=== PATIENT | male | born 1970 | race Caucasian/White ===

== ENCOUNTER 2017-06-08 09:24 | Day surgery (SDC) | payer OTHER ==
--- NOTE | 2017-06-08 10:52 | PDOC ---
History of Present Illness - General History Source: Patient Exam Limitations: No Limitations - History of Present Illness Initial Comments: 06/08/17 10:58 The patient is a 47 year old male, with a significant past medical history of a left inguinal hernia and depression, who presents to the emergency department with left inguinal pain since earlier today. The patient reports sudden onset of left inguinal pain earlier this morning, secondary to bulging left inguinal hernia. Patient states he was diagnosed with the hernia via US in 2016, and was told he needed surgical intervention. Since then, patient reports intermittent left inguinal pain, exacerbated with bending or sitting. However, today, patient reports worsening pain, which he rates a 10/10. Patient states there are days where the hernia feels like its not there, but it can pop out and he can push it back in. He denies any associated abdominal pain, nausea, vomiting, diarrhea, or constipation. He denies any testicular swelling, dysuria, hematuria , frequency, or urgency. He denies any fever or chills. He denies any recent travel or sick contacts. He denies any heavy lifting or trauma. Allergies: NKDA Past Surgical History: None reported. 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 No ETOH or recreational drug use. Non smoker <Sanna Iverson - Last Filed: 06/08/17 11:05> - General History Source: Patient Exam Limitations: No Limitations <Karla Marin - Last Filed: 06/08/17 16:47> - General Chief Complaint: Pain Stated Complaint: Inginal hernia pain Past History <Sanna Iverson - Last Filed: 06/08/17 11:05> - Past Medical History COPD: No - Suicide/Smoking/Psychosocial Hx Smoking History: Never smoked Have you smoked in the past 12 months: No Information on smoking cessation initiated: Yes Hx Alcohol Use: No Drug/Substance Use Hx: No Substance Use Type: None <Karla Marin - Last Filed: 06/08/17 16:47> - Past Medical History Allergies/Adverse Reactions: Allergies Allergy/AdvReac Type Severity Reaction Status Date / Time No Known Allergies Allergy Verified 06/08/17 09:32 Home Medications: Ambulatory Orders Buprenorphine HCl/Naloxone HCl [Suboxone 4 mg-1 mg Sl Film] 1 each SL BID Escitalopram Oxalate [Lexapro -] 20 mg PO DAILY 06/08/17 Review of Systems - Review of Systems Able to Perform ROS?: Yes Comments:: 06/08/17 10:58 GENERAL/CONSTITUTIONAL: No fever or chills. No weakness. HEAD, EYES, EARS, NOSE AND THROAT: No change in vision. No ear pain or discharge. No sore throat. CARDIOVASCULAR: No chest pain or shortness of breath. RESPIRATORY: No cough, wheezing, or hemoptysis. GASTROINTESTINAL: No nausea, vomiting, diarrhea or constipation. GENITOURINARY: No dysuria, frequency, or change in urination. MUSCULOSKELETAL: +Left inguinal pain. No neck or back pain. SKIN: No rash NEUROLOGIC: No headache, vertigo, loss of consciousness, or change in strength/ sensation. ENDOCRINE: No increased thirst. No abnormal weight change. HEMATOLOGIC/LYMPHATIC: No anemia, easy bleeding, or history of blood clots. ALLERGIC/IMMUNOLOGIC: No hives or skin allergy. <Sanna Iverson - Last Filed: 06/08/17 11:05> *Physical Exam - Vital Signs Last Vital Signs Temp Pulse Resp BP Pulse Ox 98 F 96 H 18 122/100 100 06/08/17 09:30 06/08/17 09:30 06/08/17 09:30 06/08/17 09:30 06/08/17 09:30 - Physical Exam Comments: 06/08/17 10:58 GENERAL: Awake, alert, and fully oriented, in no acute distress HEAD: No signs of trauma EYES: PERRLA, EOMI, sclera anicteric, conjunctiva clear ENT: Auricles normal inspection, hearing grossly normal, nares patent. Moist mucosa NECK: Normal ROM, supple, no lymphadenopathy, JVD, or masses LUNGS: Breath sounds equal, clear to auscultation bilaterally. No wheezes, and no crackles HEART: Regular rate and rhythm, normal S1 and S2, no murmurs, rubs or gallops ABDOMEN: Palpable bulge, non reducible left inguinal hernia. Soft, nontender, normoactive bowel sounds. No guarding, no rebound. : Scrotum nontender bilaterally EXTREMITIES: Normal range of motion, no edema. No clubbing or cyanosis. No cords, erythema, or tenderness. DP/PT pulses 2+ and symmetric. Warm NEUROLOGICAL: Moves all extremities. Normal speech, normal gait SKIN: Warm, Dry, normal turgor, no rashes or lesions noted. <Sanna Iverson - Last Filed: 06/08/17 11:05> - Vital Signs Last Vital Signs Temp Pulse Resp BP Pulse Ox 98 F 96 H 18 122/100 100 06/08/17 09:30 06/08/17 09:30 06/08/17 09:30 06/08/17 09:30 06/08/17 09:30 <Karla Marin - Last Filed: 06/08/17 16:47> Heart Score/ECG Review #1 General ECG Interpretation: Sinus Rhythm, Normal Rate (68), Normal Intervals, No acute ischemic changes <Karla Marin - Last Filed: 06/08/17 16:47> ED Treatment Course - LABORATORY CBC & Chemistry Diagram: 06/08/17 07:30 06/08/17 07:30 <Karla Marin - Last Filed: 06/08/17 16:47> Medical Decision Making - Medical Decision Making 06/08/17 11:05 First call placed to [facility] at 11:06. Awaiting call back. <Sanna Iverson - Last Filed: 06/08/17 11:05> - Medical Decision Making 06/08/17 10:47 -year-old male known history of left inguinal hernia was told to have surgery 2 years ago here today for pain and swelling in the left inguinal region. Patient states he usually can reduce it but today was unable to reduce it no nausea no vomiting pain is moderate no urinary complaints. Last BM was yesterday unsure if he is passing gas. He does not currently have a primary care doctor only medication he takes for previous opiate addiction and depression On exam he is awake alert no acute distress his left inguinal region is noted for a bulge which is nonreducible mild tenderness no overlying erythema testes are nontender and there is no palpable scrotal hernia X Plan surgery consult IV fluids labs including a lactate CT of the pelvis make the patient nothing by mouth patient requesting no opiates for pain control <Karla Marin - Last Filed: 06/08/17 16:47> *DC/Admit/Observation/Transfer - Attestations Scribe Attestion: 06/08/17 10:58 Documentation prepared by Giomilsy Iverson, acting as health care / medical job titles for Karla Marin MD. <Sanna Iverson - Last Filed: 06/08/17 11:05> - Discharge Dispostion Admit: Yes <Karla Marin - Last Filed: 06/08/17 16:47> Diagnosis at time of Disposition: Inguinal hernia
[2017-06-08] MEDS ORDERED: SODIUM CHLORIDE 0.9% 1000 ML INFUS.BAG IV ONE (11:00)
[2017-06-08] MEDS ORDERED: ACETAMINOPHEN 1000 MG/100 ML VIAL (NON FORMULARY) IVPB ONE (11:00)
[2017-06-08] MEDS ORDERED: ACETAMINOPHEN INJECTION 100 ML IVPB ONE (11:11)
[2017-06-08 11:35] LABS: BASO % 0.3 % (0-2.0); EOS % 2.7 % (0-4.5); HEMATOCRIT 41.7 % (35.4-49); HEMOGLOBIN 14.2 GM/dL (11.7-16.9); MEAN CELL VOLUME 85.1 fl (80-96); MEAN PLT VOLUME 7.7 fl (7.5-11.1); MONO % 6.1 % (3.8-10.2); NEUT % 63.9 % (42.8-82.8); PLATELET COUNT 261 K/MM3 (134-434); RBC 4.91 M/mm3 (4.00-5.60); RDW 13.5 % (11.9-15.9); WHITE BLOOD COUNT 6.5 K/mm3 (4.0-10.0)
[2017-06-08 11:50] LABS: INR 0.99 (0.82-1.09); PROTHROMBIN TIME (PATIENT) 11.2 SEC (9.98-11.88)
[2017-06-08 12:04] LABS: ALBUMIN 4.4 g/dl (3.4-5.0); ALK PHOS 86 U/L (45-117); ANION GAP 9 (8-16); BILIRUBIN,TOTAL 0.3 mg/dL (0.2-1.0); BLOOD UREA NITROGEN 13 mg/dL (7-18); CALCIUM 9.1 mg/dL (8.5-10.1); CHLORIDE 104 mmol/L (98-107); CO2 26 mmol/L (21-32); CREATININE 0.7 mg/dL (0.7-1.3); GLUCOSE,RANDOM 112 mg/dL (74-106); SGPT/ALT 41 U/L (12-78); SODIUM 139 mmol/L (136-145); TOT PROT 7.3 g/dl (6.4-8.2)
--- NOTE | 2017-06-08 12:05 | HP ---
Admitting History and Physical - Admission Chief Complaint: left groin pain History of Present Illness: 47yo M with h/o oxycodone abuse on suboxone maintenance therapy (sober 6-7 yrs) , anxiety, left inguinal hernia diagnosed 2 yrs ago, presents with left groin pain today enough to prompt ER visit. He reports the hernia generally slides in and out, and bothers him more while up and around or while driving (for work), but usually goes down when relaxing or lying down. This time, it has not gone back in, but for no longer than yesterday pm. His pain is much better since IV Tylenol, but ER was unable to reduce it. He has no urinary complaints, no constipation or diarrhea, no F/C, no N/V. He last had a few bites of breakfast sandwich and coffee while in ER (~11am). Surgery was called to evaluate. I was able to reduce hernia fairly easily with patient supine and without pain or tenderness. History Source: Patient Limitations to Obtaining History: No Limitations - Past Medical History Psych: Yes: Addictions (oxycodone - on suboxone for 6-7 years, sober), Anxiety Musculoskeletal: Yes: Chronic low back pain ENT: Yes: Allergic Rhinitis - Past Surgical History Additional Past Surgical History: cyst off neck x2 - Smoking History Smoking history: Former smoker Have you smoked in the past 12 months: No Aproximately how many cigarettes per day: 0 (~10 pk-yr hx, uses vapes no nicotine now) If you are a former smoker, when did you quit?: 6-7 yrs ago - Alcohol/Substance Use Hx Alcohol Use: Yes (rare) History of Substance Use: reports: Prescription (oxycodone - quit 6 yrs ago, on suboxone) - Social History Usual Living Arrangement: Yes: With Spouse ADL: Independent 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, 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 Home Medications - Allergies Allergies/Adverse Reactions: Allergies Allergy/AdvReac Type Severity Reaction Status Date / Time No Known Allergies Allergy Verified 06/08/17 09:32 - Home Medications Home Medications: Ambulatory Orders Buprenorphine HCl/Naloxone HCl [Suboxone 4 mg-1 mg Sl Film] 1 each SL BID Escitalopram Oxalate [Lexapro -] 20 mg PO DAILY 06/08/17 Family Disease History - Family Disease History Family History: Unremarkable (noncontributory) Review of Systems - Review of Systems Constitutional: denies: Chills, Fever Eyes: denies: Blurred Vision, Recent Change in Vision HENT: denies: Difficult Swallowing, Nasal Congestion, Throat Pain Neck: denies: Swollen Glands, Tenderness Cardiovascular: denies: Chest Pain, Palpitations Respiratory: denies: Cough, SOB Gastrointestinal: reports: Constipation. denies: Abdominal Pain, Diarrhea, Nausea, Vomiting Genitourinary: denies: Burning, Dysuria, Frequency, Incontinence, Urgency Musculoskeletal: reports: Back Pain. denies: Joint Pain, Muscle Pain Integumentary: denies: Change in Color, Rash Neurological: denies: Dizziness, Headache Psychiatric: reports: Anxiety. denies: Depression Physical Examination Vital Signs: Vital Signs Temperature 98 F 06/08/17 09:30 Pulse Rate 96 H 06/08/17 09:30 Respiratory Rate 18 06/08/17 09:30 Blood Pressure 122/100 06/08/17 09:30 O2 Sat by Pulse Oximetry (%) 100 06/08/17 09:30 Constitutional: Yes: Well Nourished, No Distress, Calm Eyes: Yes: Conjunctiva Clear, EOM Intact HENT: Yes: Atraumatic, Normocephalic Neck: Yes: Supple, Trachea Midline Cardiovascular: Yes: Regular Rate and Rhythm. No: Murmur Respiratory: Yes: Regular, CTA Bilaterally Gastrointestinal: Yes: Normal Bowel Sounds, Soft, Hernia (left inguinal - out but able to reduce without pain, no skin changes). No: Distention, Tenderness ...Rectal Exam: Yes: Deferred Renal/: No: CVA Tenderness - Left, CVA Tenderness - Right Musculoskeletal: No: Joint Stiffness, Joint Swelling Extremities: No: Cool, Cyanosis Edema: No Peripheral Pulses WNL: Yes Integumentary: No: Jaundice, Rash Neurological: Yes: Alert, Oriented Psychiatric: Yes: Alert, Oriented Labs: INR, PTT INR 0.99 (0.82-1.09) 06/08/17 07:30 CBC, BMP 06/08/17 07:30 06/08/17 07:30 Problem List - Problems (1) Reducible left inguinal hernia Assessment/Plan: hernia reduced on exam, nontender, no skin changes pt NPO since ~11am NPO/IVF until postop had IV Tylenol no narcotics Discussed with patient risks, benefits and alternatives of left inguinal hernia repair with mesh, including but not limited to bleeding, infection, injury to adjacent structures, spermatic cord injury, testicular ischemia or loss, temporary or chronic pain, numbness, hernia recurrence; alternatives include delayed or no surgery - risks of this include recurrent pain, incarceration, strangulation of hernia contents and consequences thereof (perforation/sepsis), emergent need for operation vs semielective. Patient desires to proceed with operation - will take to OR today for above. Informed consent signed for same. Pt prefers spinal anesthetic Pt understands lifting and heavy exertion will be limited for 4-6 weeks postop. Should be able to go home postoperatively once ambulating, voiding and tolerating po with oral pain meds. DVT prophylaxis - SCDs periop, early ambulation will be ASU patient on surgery service Code(s): K40.90 - UNIL INGUINAL HERNIA, W/O OBST OR GANGR, NOT SPCF RECUR (2) Left groin pain Assessment/Plan: nonnarcotic pain meds only given suboxone use Code(s): R10.32 - LEFT LOWER QUADRANT PAIN (3) Mild oxycodone abuse in sustained remission on maintenance therapy Assessment/Plan: continue home suboxone Code(s): F11.11 - OPIOID ABUSE, IN REMISSION (4) Anxiety, mild Assessment/Plan: continue lexapro Code(s): F41.9 - ANXIETY DISORDER, UNSPECIFIED
[2017-06-08 12:06] LABS: POTASSIUM 4.4 mmol/L (3.5-5.1); SGOT/AST 26 U/L (15-37)
[2017-06-08] MEDS ORDERED: SODIUM CHLORIDE 1,000 ML IV SCH (12:15)
--- NOTE | 2017-06-08 15:41 | CONSULT ---
Consult - text type - Consultation Consultation Note: Pt with reducible left inguinal hernia, for OR then d/c home. See H&P for details. MD Davide
[2017-06-08] MEDS ORDERED: IBUPROFEN 800 MG/8 ML IJ IVPB ONE ×4 (15:57→22:02)
[2017-06-08 16:22] VITALS: BMI 23.6
[2017-06-08] MEDS ORDERED: BUPIVACAINE 0.75% IN DEXTROSE/PF 2ML AMPULE NR ONE (16:37)
[2017-06-08] MEDS ORDERED: BUPIVACAINE HCL/PF 0.25% (2.5MG/ML) 10 ML VIAL ONE (17:11)
[2017-06-08] MEDS ORDERED: ceFAZolin SODIUM 1 GM VIAL IVPB ONE (17:20)
[2017-06-08] MEDS ORDERED: SODIUM CHLORIDE 0.9% P/F 10 ML VIAL IJ ONE (17:22)
[2017-06-08] MEDS ORDERED: ceFAZolin SODIUM 1 GM VIAL ONE (17:22)
[2017-06-08] MEDS ORDERED: BUPIVACAINE HCL/PF 0.25% (2.5MG/ML) 10 ML VIAL IJ ONE ×2 (17:35→19:30)
--- NOTE | 2017-06-08 20:06 | OP ---
Operative Note - Note: Operative Date: 06/08/17 Pre-Operative Diagnosis: left inguinal hernia Operation: left inguinal hernia repair with mesh Findings: indirect hernia with large sac, cord lipoma, 3x6" mesh cut down to 2x4" used for repair Implants: 3x6" Bard flat mesh cut down to 2x4" used for repair Post-Operative Diagnosis: Other (left indirect inguinal hernia) Surgeon: Nas Stephens Anesthesiologist/EQUITY TRADER: Joaquim Wood Anesthesia: Spinal, Local (20ml 0.25% marcaine) Specimens Removed: hernia sac sent to pathology Estimated Blood Loss (mls): 25 Fluid Volume Replaced (mls): 1,000 (crystalloid) Operative Report Dictated: Yes
[2017-06-08] MEDS ORDERED: ACETAMINOPHEN 500 MG TABLET (FP) PO PRN (22:08)
[2017-06-08] MEDS ORDERED: PREGABALIN 75 MG CAPSULE PO ONE (23:25)
[2017-06-09] MEDS: ACETAMINOPHEN 1000 MG/100 ML VIAL (NON FORMULARY) IVPB SCH ×2 (03:03→09:20)
[2017-06-09] MEDS ORDERED: IBUPROFEN 800 MG/8 ML IJ IVPB SCH (06:00)
[2017-06-09 08:31] VITALS: BP 144/87; PULSE 84; TEMP 97.9
[2017-06-09] MEDS ORDERED: PT OWN MED DRAWER 7, Y5N ONE (09:13)
--- NOTE | 2017-06-09 11:41 | EKG ---
Test Reason : Blood Pressure : / mmHG Vent. Rate : 068 BPM Atrial Rate : 068 BPM P-R Int : 192 ms QRS Dur : 100 ms QT Int : 416 ms P-R-T Axes : 058 028 039 degrees QTc Int : 442 ms NORMAL SINUS RHYTHM NORMAL ECG NO PREVIOUS ECGS AVAILABLE Confirmed by ELIGIO THOMPSON MD ([id number]) on 06/09/2017 11:40:46 AM Referred By: Confirmed By:ELIGIO THOMPSON MD
--- NOTE | 2017-06-10 15:37 | PATH ---
Surgical Pathology Report Patient Name: JENNIFER GONZALEZ Med. Rec. #: [id number] /Age/Gender: 1970 (Age: 47) / M Account: [id number] Location: AMBULATORY SURG Taken: 06/08/2017 Received: 06/09/2017 Reported: 06/10/2017 Physicians: Nas Stephens M.D. Specimen(s) Received LEFT INGUINAL HERNIA SAC Clinical History Left inguinal hernia sac Final Diagnosis SOFT TISSUE, LEFT INGUINAL, EXCISION: HERNIA SAC. Electronically Signed Ronald Villatoro M.D. Gross Description Received in formalin, labeled "hernia sac" are brown-lockett multiple irregular fragments of fibromembranous adipose soft tissue 8 x 6 x 1.8 cm. in greatest dimension. Kiss Mixer sections are submitted in one cassette. ANGELA/06/09/2017 lukasz/06/09/2017
== END 2017-06-09 09:45 | disposition home or self-care (01) ==
LOC: JER 09:24 → JASUSAT 13:09 → J5S 21:16 → JASUSAT 06-09 10:07
PROVIDERS: ATTEND Surgery
PROC: 0YU60JZ Supplement Left Inguinal Region with Synthetic Substitute, Open Approach (ICD-10-PCS; principal; 2017-06-08 16:30)
DX: K40.90 Unilateral inguinal hernia, without obstruction or gangrene, not specified as recurrent (principal)
CPT/HCPCS: 36415; 80053; 83605; 85025; 85610; 86850; 86900; 86901; 88302-TC; 93005; 93010; 94760; 99285-25; J0131; J7030

== ENCOUNTER 2017-08-18 10:58 | Emergency (ER) | payer OTHER ==
[2017-08-18 11:01] VITALS: BP 151/110; PULSE 98; TEMP 98.2; BMI 23.7
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
== END 2017-08-18 12:27 | disposition home or self-care (01) ==
LOC: FER 10:58
DX: T24.022A Burn of unspecified degree of left knee, initial encounter (principal); T23.001A Burn of unspecified degree of right hand, unspecified site, initial encounter; W40.8XXA Explosion of other specified explosive materials, initial encounter; Y93.89 Activity, other specified; Y92.009 Unspecified place in unspecified non-institutional (private) residence as the place of occurrence of the external cause; Z87.891 Personal history of nicotine dependence
CPT/HCPCS: 99282-25

== ENCOUNTER 2018-08-04 11:13 | Emergency (ER) | payer OTHER ==
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
[2018-08-04 11:27] VITALS: BP 138/94; PULSE 81; TEMP 98.2; BMI 24.4
[2018-08-04] MEDS ORDERED: ACETAMINOPHEN 500 MG TABLET (FP) PO ONE (11:34)
[2018-08-04] MEDS ORDERED: ACETAMINOPHEN 325 MG TABLET (FP) ONE (11:36)
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
== END 2018-08-04 12:02 | disposition home or self-care (01) ==
LOC: FER 11:13
DX: M54.5 Low back pain (principal); V43.62XA Car passenger injured in collision with other type car in traffic accident, initial encounter; Y93.89 Activity, other specified; Y92.410 Unspecified street and highway as the place of occurrence of the external cause; F32.9 Major depressive disorder, single episode, unspecified; Z87.891 Personal history of nicotine dependence
CPT/HCPCS: 99281-25

== ENCOUNTER 2020-10-04 14:20 | Emergency (ER) | payer OTHER ==
[2020-10-04 14:37] VITALS: BP 143/95; PULSE 102; TEMP 98.2; BMI 22.2
[2020-10-04] MEDS ORDERED: IBUPROFEN 400 MG TABLET (FP) PO ONE ×2 (15:56→16:13)
== END 2020-10-04 16:19 | disposition home or self-care (01) ==
LOC: FER 14:20
DX: K08.9 Disorder of teeth and supporting structures, unspecified (principal)
CPT/HCPCS: 99283-25